=== PATIENT | female | born 1970 | race African-American/Black ===

== ENCOUNTER 2016-07-08 11:05 | Emergency (ER) | payer OTHER ==
[2016-07-08 11:16] VITALS: BP 134/85; PULSE 61; TEMP 97.5; BMI 26.4
[2016-07-08] MEDS ORDERED: IBUPROFEN 400 MG TABLET (FP) PO ONE ×2 (11:53→11:58)
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
== END 2016-07-08 12:08 | disposition home or self-care (01) ==
LOC: JERFT 11:05
DX: S13.4XXA Sprain of ligaments of cervical spine, initial encounter (principal); V43.52XA Car driver injured in collision with other type car in traffic accident, initial encounter; Y92.414 Local residential or business street as the place of occurrence of the external cause; Y93.89 Activity, other specified; Y99.9 Unspecified external cause status
CPT/HCPCS: 99281-25

== ENCOUNTER 2016-07-09 09:00 | Inpatient (IN) | payer OTHER ==
[2016-09-30 13:08] VITALS: BMI 29.9
--- NOTE | 2016-10-07 09:33 | HP ---
[facility] - Chief Complaint Chief Complaint: right hip pain - Past Medical History Allergies/Adverse Reactions: Allergies Allergy/AdvReac Type Severity Reaction Status Date / Time No Known Allergies Allergy Verified 09/30/16 12:58 ...LMP: 09/20/16 - Current Medications Current Medications: Home Medications Medication Instructions Recorded NK [No Known Home Medication] 02/20/14 [facility] Physical Exam - Physical Examination General Appearance: Well Nourished, Well Developed, Alert & Oriented x3 ENT: Clear Lung: Normal air movement Heart: Regular rate & rhythm Extremities: Other (right hip- + ttp ,decr rom, nvi xrays show severe hip djd) Neurological: Intact, Alert, Oriented [facility] Impression/Plan - Impression/Plan Impression: right hip djd Operative Procedure: right aline thr Date to be Performed: 10/08/16
[2016-10-08] MEDS ORDERED: CELECOXIB 200 MG CAPSULE PO ONE (09:48)
[2016-10-08] MEDS ORDERED: TRANEXAMIC ACID 1000 MG/10 ML VIAL IVPUSH ONE (09:48)
[2016-10-08] MEDS ORDERED: CEFAZOLIN 2 GM in DEXTROSE 5%-WATER - 50 ML IVPB ONE (09:48)
[2016-10-08] MEDS ORDERED: GABAPENTIN 300 MG CAPSULE (FP) PO ONE (09:48)
[2016-10-08] MEDS ORDERED: oxyCODONE HCL 10 MG SUSTAINED ACTING TABLET PO ONE (09:48)
[2016-10-08] MEDS ORDERED: MIDAZOLAM HCL 2 MG/2 ML SINGLE DOSE VIAL ONE (10:45)
[2016-10-08] MEDS ORDERED: ROPIVACAINE HCL 0.5% 30ML VIAL ONE (10:45)
[2016-10-08] MEDS ORDERED: MAGNESIUM HYDROX 2400MG/30ML ORAL SUSPENSION 30 ML CUP PO PRN (13:56)
[2016-10-08] MEDS ORDERED: MAG HYDROX/AL HYDROX/SIMETH 30 ML UNIT-DOSE CUP PO PRN (13:56)
--- NOTE | 2016-10-08 13:58 | OP ---
Operative Note - Note: Operative Date: 10/08/16 (tejas) Pre-Operative Diagnosis: right hip djd Operation: right aline thr Post-Operative Diagnosis: Same as Pre-op Surgeon: Theodore Strange Outbound Call Center Representative: Yaron Maynard Anesthesia: Spinal, Local Specimens Removed: femoral head Estimated Blood Loss (mls): 200 Operative Report Dictated: Yes
[2016-10-08] MEDS ORDERED: LACTATED RINGERS SOLUTION 1,000 ML IV SCH (14:00)
[2016-10-08] MEDS ORDERED: ONDANSETRON 4 MG/2 ML VIAL IVPB PRN (14:16)
[2016-10-08] MEDS ORDERED: oxyCODONE HCL 5 MG TABLET PO PRN (14:35)
[2016-10-08] MEDS ORDERED: ACETAMINOPHEN 1000 MG/100 ML VIAL (NON FORMULARY) IVPB ONE (14:35)
[2016-10-08] MEDS ORDERED: ONDANSETRON 4 MG/2 ML VIAL ONE (14:42)
[2016-10-08] MEDS: oxyCODONE HCL 5 MG TABLET PO PRN (20:04)
[2016-10-08] MEDS: CEFAZOLIN 2 GM/D5W 50 ML IVPB SCH (20:04)
[2016-10-08] MEDS: GABAPENTIN 300 MG CAPSULE (FP) PO SCH (21:22)
[2016-10-08] MEDS: SENNOSIDES/DOCUSATE COMBO (SENNA PLUS) TABLET (UD) PO SCH (21:22)
[2016-10-09] MEDS: oxyCODONE HCL 5 MG TABLET PO PRN ×5 (00:53→19:47)
[2016-10-09] MEDS: CEFAZOLIN 2 GM/D5W 50 ML IVPB SCH (03:01)
--- NOTE | 2016-10-09 07:35 | PN ---
Progress Note (short form) - Note Progress Note: Ortho Pt seen and examined s/p right laine thr pod #1 Selected Entries 10/09/16 05:00 Temperature 98.6 F Pulse Rate 64 Respiratory 20 Rate Blood Pressure 122/64 dressing c/d/i, calf soft, nt nvi cbc pending a/p PT dvt ppx pain control d/c home tomorrow if stable
[2016-10-09] MEDS: ASPIRIN 325 MG TABLET PO SCH (08:53)
[2016-10-09] MEDS: MULTIVITAMINS (DAILY MVI) TABLET (FP) PO SCH (09:05)
[2016-10-09] MEDS: GABAPENTIN 300 MG CAPSULE (FP) PO SCH ×2 (09:05→21:39)
[2016-10-09] MEDS: PANTOPRAZOLE 40 MG TABLET (FP) PO SCH (09:05)
[2016-10-09] MEDS: SENNOSIDES/DOCUSATE COMBO (SENNA PLUS) TABLET (UD) PO SCH ×2 (09:05→21:39)
[2016-10-09 09:15] LABS: MCH 31.1 pg (25.7-33.7); MCHC 34.1 g/dl (32.0-36.0); MEAN CELL VOLUME 91.3 fl (80-96); MEAN PLT VOLUME 8.6 fl (7.5-11.1); PLATELET COUNT 267 K/MM3 (134-434); RDW 13.2 % (11.6-15.6); WHITE BLOOD COUNT 10.9 K/mm3 (4.0-10.8)
--- NOTE | 2016-10-09 09:24 | OP ---
DATE OF OPERATION: 10/08/2016 PREOPERATIVE DIAGNOSIS: Degenerative joint disease, right hip. POSTOPERATIVE DIAGNOSIS: Degenerative joint disease, right hip. PROCEDURE: Right total hip replacement with robotic-assisted navigation (MAKOplasty). SURGICAL ATTENDING: Theodore Strange MD SOFTWARE SECURITY CONSULTANT: CRISTIAN Ramirez ANESTHESIA: Regional and spinal. CLOSURE: A press-fit PFL 48-mm cup with an MDM liner and a number 5 Accolade II stem. No. 1 Vicryl for fascia, 0 and 2-0 subcutaneous, 3-0 Monocryl subcuticular and skin glue for skin. ESTIMATED BLOOD LOSS: Less than 100 mL. COMPLICATIONS: None. CONDITION: To recovery room in stable condition. DESCRIPTION OF OPERATIVE PROCEDURE: The patient was taken to the operating room on October 08, 2016. Regional and spinal anesthesia was administered by the anesthesiologist. IV Kefzol and TXA were administered prophylactically prior to the case. The patient was placed in the lateral decubitus position with all prominences well padded. The right hip area was prepped and draped in the usual sterile fashion. First, three small stab incisions were made over the iliac wing. Through this, threaded pins were drilled through the two tables of the crest achieving excellent fixation. To these pins, we attached the navigation array for the navigational procedure. Next, a 12 cm curved longitudinal incision over the posterolateral aspect of the greater trochanter was incised. Hemostasis was achieved with Bovie cautery. Sharp dissection was carried down to the level of the fascia which was opened the entire length of the incision, spreading the fibers of the gluteus aide in line with their direction of origin. A Charnley retractor was placed in this layer and care was taken not to the sciatic nerve. The short external rotators were detached off the insertion of the greater trochanter and peeled off the capsule. A capsulotomy was then performed. A checkpoint was malleted into the greater trochanter. The preoperative limb lengths and offset were then calibrated using the navigation device by putting an array in the checkpoint end on the inferior pole of the patella. The hip was then dislocated. The head was then osteotomized to the appropriate level. Anterior and posterior retractors were placed exposing the acetabulum. Circumferential labrum excision was performed. The acetabulum was registered with the navigation device and multiple spots inside and outside the acetabulum achieving excellent registration and it was confirmed by "popping the bubbles." The robot was then brought into the field and 48-mm hemispherical reaming was performed achieving good rim bleeding bone. Prior to the surgery, we had decided that due to the patient's protrusio acetabulum that we would not try to "bottom out" the reaming, as this would bring us into the pelvis and medialize the center of rotation. It was decided to ream and get a circumferential rim fit. The base was curetted and scraped to produce some bleeding bone, but the medial wall was not reamed. The femoral head was reamed with a small reamer and the back part of the acetabulum component was back-filled with reamings. The real 48-mm PFL cup was then malled into place achieving excellent fixation. Two screws were drilled in order to add adjuvant fixation, as we did not bottom out the cup. This added excellent adjuvant fixation, as well. The MDM liner was then clipped into place. Next, our attention was directed to the femur. The proximal femur was prepared using a box chisel, intramedullary canal finder and serial broaches until a number 5 stem achieved a good fit and fill. The hip was reduced, taken through a range of motion and found to have excellent stability throughout including in extension, external rotation, 90 degrees of flexion with marked adduction, positive hang test and negative telescoping. The cut of the femoral neck was very, very low as only about 8 mm up above the lesser trochanter which was . The limb lengths were found to be slightly longer, about 1 cm from the contralateral side. This was felt to be acceptable due to the patient having protrusio and DJD of the other hip as well. The trial component was removed. The real component was then malleted into place, achieving the same excellent range of motion, stability and limb lengths. The hip was pulse antibiotic irrigated. Vancomycin powder was placed into the hip joint prior to closure. The fascia was closed using number 1 Vicryl, 0 and 2-0 for subcutaneous, and 3-0 Monocryl subcuticular with skin glue for skin, and 4-0 undyed Vicryl for pin sites. A sterile Aquacel dressing was applied. The patient was placed in the supine position. An abduction pillow and bilateral SCDs applied. The patient was awakened from anesthesia and transferred to the recovery room in stable condition. X-rays showed excellent position of the components. Elías MCCLURE/[id number]
--- NOTE | 2016-10-09 12:50 | PN ---
Progress Note (short form) - Note Progress Note: Anesthesia postop note S/P Right total hip replacement, POD#1. Spinal and block. Pat seen and examined. Intact sensory and motor function. Ambulationg. Started PT. VSS No apparent post ansesthesia complications.
[2016-10-09] MEDS ORDERED: oxyCODONE HCL 5 MG TABLET PO PRN (15:55)
[2016-10-10] MEDS: oxyCODONE HCL 5 MG TABLET PO PRN ×3 (02:58→13:38)
[2016-10-10 06:57] VITALS: BP 128/66; PULSE 86; TEMP 98.7
[2016-10-10 08:05] LABS: MCH 31.9 pg (25.7-33.7); MCHC 34.6 g/dl (32.0-36.0); MEAN PLT VOLUME 8.4 fl (7.5-11.1); PLATELET COUNT 264 K/MM3 (134-434); RDW 13.3 % (11.6-15.6); WHITE BLOOD COUNT 12.5 K/mm3 (4.0-10.8)
--- NOTE | 2016-10-10 08:15 | PN ---
Progress Note (short form) - Note Progress Note: Ortho Pt seen and examined s/p right aline thr pod #2 Selected Entries 10/10/16 06:00 Temperature 98.7 F Pulse Rate 86 Respiratory 17 Rate Blood Pressure 128/66 Laboratory Tests 10/10/16 07:30 WBC 12.5 H Hgb 12.0 Hct 34.7 Plt Count 264 dressing c/d/i, calf soft, nt nvi a/p PT hip precautions dvt ppx pain control d/c home today f/u in 1 week
--- NOTE | 2016-10-10 08:16 | DS ---
Physical Examination Vital Signs: Vital Signs Temperature 98.7 F 10/10/16 06:00 Pulse Rate 86 10/10/16 06:00 Respiratory Rate 17 10/10/16 06:00 Blood Pressure 128/66 10/10/16 06:00 O2 Sat by Pulse Oximetry (%) 98 10/10/16 02:00 Labs: CBC, BMP 10/10/16 07:30 Discharge Summary Reason For Visit: OSTEOARTHRITIS Procedures: Principal: s/p right aline thr Hospital Course: admitted for elective right aline thr, uneventful post-op, stable for d/c Condition: Good - Instructions Diet, Activity, Other Instructions: Post-op Instructions-Total Hip Replacement Call the office for a follow-up appointment in 1 week - [phone] Aspirin 325mg daily for 6 weeks. Pain medication was sent into your pharmacy. Apply Graduated Compression Stockings (TEDs) to both lower extremities- remove daily for hygiene ONLY Apply Sequential Compression Device (SCDs) to both Lower extremities remove for PT and hygiene ONLY Apply cold packs to affected area for 15 minutes every 2 hours. Physical Therapist will come to your home for the first 5 days. You will be set up with outpatient PT at your first post-operative visit. Patient may ambulate as tolerated-encourage self care (at least every 2-3 hours while awake) with walker or cane Maintain Aquacel (waterproof) dressing to operative wound (will be removed by surgeon at first office visit) Shower with Aquacel dressing in place-if Aquacel integrity compromised, remove and apply dry sterile dressing and notify Orthopedist. DO NOT SHOWER unless Orthopedists approves without Aquacel dressing CONTACT THE OFFICE FOR ANY CHANGE IN YOUR CONDITION (for example-fever greater than 102 degrees,excessive bleeding from operative site, purulent drainage, severe swelling or pain) GO TO THE EMERGENCY ROOM IF THERE IS A MEDICAL EMERGENCY Hip Precautions: * Keep a rolled towel under affected heel while in bed or chair (to keep knee in extension) * Dependent upon approach: * Posterior - do not cross legs; do not sit on low chairs or toilets. * If you have any questions, please do not hesitate to call the office - . Referrals: Theodore Strange MD [Staff Physician] - Disposition: VNS/HOME HEALTH CARE - Home Medications Comprehensive Discharge Medication List: Ambulatory Orders Oxycodone HCl/Acetaminophen [Percocet 5-325 mg Tablet -] 1 - 2 tab PO Q6H #50 tab MDD 8 10/08/16
[2016-10-10] MEDS: MULTIVITAMINS (DAILY MVI) TABLET (FP) PO SCH (08:59)
[2016-10-10] MEDS: SENNOSIDES/DOCUSATE COMBO (SENNA PLUS) TABLET (UD) PO SCH (08:59)
[2016-10-10] MEDS: PANTOPRAZOLE 40 MG TABLET (FP) PO SCH (08:59)
[2016-10-10] MEDS: ASPIRIN 325 MG TABLET PO SCH (09:00)
[2016-10-10] MEDS: GABAPENTIN 300 MG CAPSULE (FP) PO SCH (09:01)
--- NOTE | 2016-10-10 16:26 | PATH ---
Surgical Pathology Report Patient Name: ROLAN ESTRADA Med. Rec. #: [id number] /Age/Gender: 1970 (Age: 46) / F Account: [id number] [facility] Taken: 10/08/2016 Received: 10/08/2016 Reported: 10/10/2016 Physicians: Theodore Strange M.D. Specimen(s) Received RIGHT FEMORAL HEAD Clinical History Right hip osteoarthritis Final Diagnosis BONE, RIGHT FEMORAL HEAD, REPLACEMENT: DEGENERATIVE JOINT DISEASE. Electronically Signed Misbah Castanon M.D. Gross Description Received in formalin, labeled "right femoral head," is a 4.3 x 4.3 x 3.4 cm. femoral head with no femoral neck attached. The margin of resection is smooth. No areas of eburnation are identified. The articular surface is mayer-yellow and focally granular. The underlying trabecular bone is yellow and hard. Also received within the same container is a 3.8 x 3.6 x 1.5 cm irregular portion of bone, consistent with a portion of femoral neck. A sales representative raw fibers section is submitted in one cassette, following decalcification. 10/09/201610/09/2016
== END 2016-10-10 14:10 | disposition home health service (06) | DRG 470 ==
LOC: UNDOADMIN 10-08 09:35 → FM/S 10-08 09:35
PROVIDERS: ADMIT Orthopaedic Surgery; ATTEND Orthopaedic Surgery
PROC: 8E0Y0CZ Robotic Assisted Procedure of Lower Extremity, Open Approach (ICD-10-PCS; 2016-10-08)
PROC: 0SR90JA Replacement of Right Hip Joint with Synthetic Substitute, Uncemented, Open Approach (ICD-10-PCS; principal; 2016-10-08 12:35)
DX: M16.11 Unilateral primary osteoarthritis, right hip (principal)
CPT/HCPCS: 36415; 73502-TC-RT; 84703; 85027; 88304-TC; 88311-TC; 94010; 94760; 97116-GP; 97162-GP

== ENCOUNTER 2018-01-27 05:02 | Day surgery (SDC) | payer OTHER ==
[2018-01-23 12:36] VITALS: BMI 28.7
[2018-01-27] MEDS ORDERED: PROPOFOL 20 ML ONE (11:37)
[2018-01-27] MEDS ORDERED: MIDAZOLAM HCL 2 MG/2 ML SINGLE DOSE VIAL ONE (11:38)
--- NOTE | 2018-01-27 12:17 | HP ---
History & Physical Update - Physical Physical: No Change - Assessment Assessment: No Change - Plan Plan: No Change
[2018-01-27] MEDS ORDERED: DEXAMETHASONE SOD PHOSPHATE 4 MG/1 ML VIAL ONE (12:46)
[2018-01-27] MEDS ORDERED: KETOROLAC TROMETHAMINE 30 MG/1 ML VIAL ONE (12:48)
[2018-01-27] MEDS ORDERED: ONDANSETRON 4 MG/2 ML VIAL IVPUSH PRN (13:12)
[2018-01-27] MEDS ORDERED: IBUPROFEN 800 MG/8 ML IJ IVPB PRN (13:12)
[2018-01-27] MEDS ORDERED: IBUPROFEN 600 MG TABLET (FP) PO PRN (13:12)
[2018-01-27] MEDS ORDERED: oxyCODONE HCL 5 MG TABLET PO PRN (13:12)
[2018-01-27] MEDS ORDERED: ELECTROLYTE-148 SOLN 1,000 ML IV SCH (13:15)
[2018-01-27] MEDS ORDERED: LACTATED RINGERS SOLUTION 1,000 ML IV SCH (13:15)
[2018-01-27] MEDS ORDERED: oxyCODONE HCL 5 MG TABLET ONE (14:02)
[2018-01-27] MEDS ORDERED: ONDANSETRON 4 MG/2 ML VIAL ONE (14:02)
--- NOTE | 2018-01-27 14:37 | OP ---
DATE OF OPERATION: 01/27/2018 PREOPERATIVE DIAGNOSES: Menometrorrhagia, fibroid uterus. POSTOPERATIVE DIAGNOSES: Menometrorrhagia, fibroid uterus, endometrial polyp. SURGEON: Jono Fairchild MD ANESTHESIA: General. ANESTHESIOLOGIST: Orin Ferraro MD ESTIMATED BLOOD LOSS: 50 mL DESCRIPTION OF OPERATIVE PROCEDURE: Patient was taken to the operating room, had adequate general anesthesia. In dorsal lithotomy position, examination under anesthesia revealed external genitalia to be normal. Vagina was normal. Cervix was clean. No gross lesions. The uterus was irregular, enlarged, approximately 12-week size. Adnexa: No masses were palpable. Uterus was irregular and consistent with multiple myomas. Then, anterior lip of the cervix was grasped with a single-tooth tenaculum. Cervix was slightly dilated and sounded to 9 cm. Then, Symphion hysteroscope/resectoscope was introduced, and visualization of the endocervical canal was normal. There were several polyps at the fundal area of the uterus, which were floating polyps. Both ostia were visualized. No submucous myoma was seen. Then, endometrial polyp was removed. Then, the resectoscope was withdrawn, and the endometrium was curetted. Patient tolerated the procedure well, left the OR in good condition. JONO FAIRCHILD M.D. [id number]
--- NOTE | 2018-01-27 17:02 | EKG ---
Test Reason : Blood Pressure : / mmHG Vent. Rate : 056 BPM Atrial Rate : 056 BPM P-R Int : 166 ms QRS Dur : 098 ms QT Int : 470 ms P-R-T Axes : 064 051 055 degrees QTc Int : 453 ms SINUS BRADYCARDIA OTHERWISE NORMAL ECG WHEN COMPARED WITH ECG OF 24-JAN-2018 12:07, NO SIGNIFICANT CHANGE WAS FOUND Confirmed by MD LANI, PADMINI ([id number]) on 01/27/2018 5:01:37 PM Referred By: Ulises AYOUB Confirmed By:PADMINI GARIBAY MD
[2018-01-27 17:37] VITALS: BP 120/60; PULSE 60
[2018-01-27 18:03] VITALS: TEMP 97.8
--- NOTE | 2018-01-28 16:27 | PATH ---
Surgical Pathology Report Patient Name: ROLAN ESTRADA [facility]. Rec. #: [id number] /Age/Gender: 1970 (Age: 47) / F Account: [id number] Location: [facility] SURGICAL Taken: 01/27/2018 Received: 01/27/2018 Reported: 01/28/2018 Physicians: Jono Fairchild M.D. Specimen(s) Received ENDOMETRIAL CURETTINGS AND POLYP Clinical History Fibroids Final Diagnosis ENDOMETRIAL CURETTINGS AND POLYP, DILATION AND CURETTAGE: FEW FRAGMENTS OF ENDOMETRIAL TISSUE WITH DISTORTED GLANDULAR ARCHITECTURE AND THICKENED VESSELS IN THE STROMA, SUGGESTIVE OF ENDOMETRIAL POLYP. SMOOTH MUSCLE BUNDLES, CONSISTENT WITH SUBMUCOSAL LEIOMYOMA IN A PROPER CLINICAL SETTING. SEPARATE PROLIFERATIVE ENDOMETRIUM. FRAGMENTS OF ENDOCERVICAL TISSUE WITH SQUAMOUS METAPLASIA. Electronically Signed Priscila Wu M.D. Gross Description Received in formalin labeled "endometrial curettings," is a 1.8 x 1.4 x 0.3 cm aggregate of mayer red soft tissue fragments. The formalin is filtered and the specimen is entirely submitted in one cassette. /01/27/2018 saudi/01/27/2018
== END 2018-01-27 18:03 | disposition home or self-care (01) ==
LOC: JASU-SURG 05:02
PROVIDERS: ATTEND Obstetrics & Gynecology
PROC: 0UB98ZX Excision of Uterus, Via Natural or Artificial Opening Endoscopic, Diagnostic (ICD-10-PCS; principal; 2018-01-27 11:00)
PROC: 0UDB7ZX Extraction of Endometrium, Via Natural or Artificial Opening, Diagnostic (ICD-10-PCS; 2018-01-27 11:00)
DX: N92.1 Excessive and frequent menstruation with irregular cycle (principal); N84.0 Polyp of corpus uteri
CPT/HCPCS: 84703; 88305-TC; 93005; 93010; 94760

== ENCOUNTER 2018-05-17 16:40 | Emergency (ER) | payer OTHER ==
[2018-05-17 16:44] VITALS: BMI 29.4
--- NOTE | 2018-05-17 17:25 | PDOC ---
History of Present Illness - General Chief Complaint: Hemoptysis Stated Complaint: BLEEDING Time Seen by Provider: 05/17/18 17:25 History Source: Patient Exam Limitations: No Limitations - History of Present Illness Initial Comments: 05/17/18 17:27 This is a 47yo F with PMH of hypothyroidism s/p partial thyroidectomy 1996, diverticulitis s/p partial colectomy 2012, and uterine fibroids, who presents due to hematemesis. She felt well until this morning when she woke up with chills, malaise and sore throat. She was gargling her throat with salt water when she experience 2 episodes of hematemesis in a row. she was not nauseous prior to vomiting. She gets monthly migraines that feel like "pressure" because shes on medication, sometimes associated with vomiting (no prior episodes of hematemesis) but denies having a migraine prior to this episode. She denies cough, abd pain, d/c, melena, hematochezia, a/c use, NSAID use, fever, sick contacts, EtOH use. She returned back from [place] trip 1 w ago. 05/17/18 17:29 05/17/18 17:48 05/17/18 18:09 05/17/18 Past History - Past Medical History Allergies/Adverse Reactions: Allergies Allergy/AdvReac Type Severity Reaction Status Date / Time No Known Allergies Allergy Verified 05/17/18 16:44 Home Medications: Ambulatory Orders Oxycodone HCl/Acetaminophen [Percocet 5-325 mg Tablet -] 1 - 2 tab PO Q6H #50 tab MDD 8 10/08/16 Ibuprofen [Motrin -] 600 mg PO TID #21 tablet 01/27/18 Anemia: No Asthma: No Cancer: No Cardiac Disorders: No CVA: No COPD: No CHF: No Dementia: No Diabetes: No GI Disorders: Yes (DIVERTICULOSIS & ITIS) Disorders: Yes (FIBROIDS) HTN: No Hypercholesterolemia: No Liver Disease: No Seizures: No Thyroid Disease: Yes - Surgical History Abdominal Surgery: Yes (colon sx for diverticulitis) Appendectomy: No Cardiac Surgery: No Cholecystectomy: No Lung Surgery: No Neurologic Surgery: No Orthopedic Surgery: Yes (rt. hip replacement) - Immunization History Td Vaccination: (unknown) Immunization Up to Date: (unknown) - Suicide/Smoking/Psychosocial Hx Smoking Status: No Smoking History: Never smoked Years of Tobacco Use: 0 Have you smoked in the past 12 months: No Number of Cigarettes Smoked Daily: 0 If you are a former smoker, when did you quit?: 05/15/12 Cigars Per Day: 0 'Breaking Loose' booklet given: 05/16/12 Hx Alcohol Use: No Drug/Substance Use Hx: Yes Substance Use Type: Marijuana Hx Substance Use Treatment: No Review of Systems - Review of Systems Able to Perform ROS?: Yes Is the patient limited Martiniquais proficient: No Constitutional: Yes: Chills. No: Fever HEENTM: Yes: Throat Pain. No: Nose Congestion Respiratory: No: Cough, Shortness of Breath, Wheezing Cardiac (ROS): No: Chest Pain, Lightheadedness, Palpitations, Chest Tightness ABD/GI: Yes: Vomiting. No: Abdominal Distended, Blood Streaked Bowels, Constipated, Diarrhea, Nausea, Abdominal cramping : No: Dysuria Musculoskeletal: No: Back Pain Integumentary: No: Bruising Neurological: Yes: Headache (monthy migraines ). No: Numbness, Paresthesia Psychiatric: No: Anxiety Hematologic/Lymphatic: No: Anemia, Blood Clots, Easy Bleeding *Physical Exam - Vital Signs Last Vital Signs Temp Pulse Resp BP Pulse Ox 98.6 F 74 18 107/77 99 05/17/18 16:42 05/17/18 16:42 05/17/18 16:42 05/17/18 16:42 05/17/18 16:42 - Physical Exam General Appearance: Yes: Nourished, Appropriately Dressed, Mild Distress HEENT: positive: EOMI, Normal Voice, Tonsillar Erythema. negative: Scleral Icterus (R), Scleral Icterus (L), Tonsillar Exudate, Nasal Congestion, Rhinorrhea, Sinus Tenderness Neck: positive: Trachea midline, Normal Thyroid, Supple. negative: Tender Respiratory/Chest: positive: Lungs Clear, Normal Breath Sounds Cardiovascular: positive: Regular Rhythm, Regular Rate, S1, S2. negative: Edema Gastrointestinal/Abdominal: positive: Tender, Flat, Soft, Decreased BS, Tenderness (mild epigastric ). 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 NML intact (grossly ), Fully Oriented, Alert, Normal Mood/Affect Moderate Sedation - Procedure Monitoring Vital Signs: Procedure Monitoring Vital Signs Temperature 98.6 F 05/17/18 16:42 Pulse Rate 74 05/17/18 16:42 Respiratory Rate 18 05/17/18 16:42 Blood Pressure 107/77 05/17/18 16:42 O2 Sat by Pulse Oximetry (%) 99 05/17/18 16:42 ED Treatment Course - LABORATORY CBC & Chemistry Diagram: 05/17/18 18:06 05/17/18 18:00 - ADDITIONAL ORDERS Additional order review: 05/17/18 20:14 05/17/18 20:15 Clinical picture most consistent with mild URI and a capillary tear in throat that resulted in hematemesis during gargling patient given mylanta and pepcid labs and x ray unremarkable *DC/Admit/Observation/Transfer Diagnosis at time of Disposition: Hematemesis without nausea URI (upper respiratory infection) Qualifiers: URI type: unspecified viral URI Qualified Code(s): J06.9 - Acute upper respiratory infection, unspecified - Discharge Dispostion Disposition: HOME Condition at time of disposition: Good Decision to Admit order: No - Referrals Referrals: Abad Kelley DO [Staff Physician] - - Patient Instructions Printed Discharge Instructions: Common Cold, DI for Viral Upper Respiratory Infection -- Adult Additional Instructions: Your bloody vomit episode was most likely caused by a small capillary tear in an already irritate throat please follow up with a neurologist for yoru frequent migraines we referred you to Dr Kelley. - Post Discharge Activity
--- NOTE | 2018-05-17 17:51 | PDOC ---
Attending Attestation - HPI HPI: 05/17/18 17:56 This is a 47 year old female with a significant past medical history of hypothyroidism s/p partial thyroidectomy 1996, diverticulitis s/p partial colectomy 2012, and uterine fibroids, who presents to the ED with generalized malaise since this morning. Patient reports malaise, chills, generalized weakness, and sore throat. Patient states she gargled salt water to alleviate her throat pain this morning when she had 2 episodes of hematemesis in a row. Denies taking medication for present symptoms. Patient states she gets monthly headaches for the past several months. Denies nausea. Denies fever or chills. Denies any other symptoms. - Physicial Exam PE: 05/17/18 18:15 GENERAL: Well developed, well nourished. Awake and alert. No acute distress. HEENT: + Tonsillar Erythema Normocephalic, atraumatic. PERRLA, EOMI. No conjunctival pallor. Sclera are non- icteric. Moist mucous membranes. NECK: Supple. Full ROM. No JVD. Carotid pulses 2+ and symmetric, without bruits. No thyromegaly. No lymphadenopathy. CARDIOVASCULAR: Regular rate and rhythm. No murmurs, rubs, or gallops. Distal pulses are 2+ and symmetric. PULMONARY: No evidence of respiratory distress. Lungs clear to auscultation bilaterally. No wheezing, rales or rhonchi. ABDOMINAL: Soft. Non-tender. Non-distended. No rebound or guarding. No organomegaly. Normoactive bowel sounds. MUSCULOSKELETAL Normal range of motion at all joints. No bony deformities or tenderness. No CVA tenderness. EXTREMITIES: No cyanosis. No clubbing. No edema. No calf tenderness. SKIN: Warm and dry. Normal capillary refill. No rashes. No jaundice. NEUROLOGICAL: Alert, awake, appropriate. Cranial nerves 2-12 intact. No deficits to light touch and temperature in face, upper extremities and lower extremities. No motor deficits in the in face, upper extremities and lower extremities. Normoreflexic in the upper and lower extremities. Normal speech. Toes are down- going bilaterally. Gait is normal without ataxia. PSYCHIATRIC: Cooperative. Good eye contact. Appropriate mood and affect. <Devora Lay - Last Filed: 05/17/18 18:15> - Resident Resident Name: Evelina Franz - ED Attending Attestation I have performed the following: I have examined & evaluated the patient, The case was reviewed & discussed with the resident, I agree w/resident's findings & plan, Exceptions are as noted - HPI HPI: 05/17/18 17:47 47 yo female was gargling with salt water for her sore throat . She also had chills today. She came from [place] one week ago After she gargled with salt water several times she noted some blood in her saliva - Medical Decision Making 05/17/18 20:09 all her lab work was unremarkable cbc wnl comp wnl neg preg test NEGATIVE influenza 05/17/18 20:25 imp: viral syndrome ,URI d/c home <Marly Singh - Last Filed: 05/17/18 20:26> Attestations - Attestations 05/17/18 18:16 Documentation prepared by Devora Lay, acting as medical i d sales for Marly Singh MD <Devora Lay - Last Filed: 05/17/18 18:15>
[2018-05-17] MEDS ORDERED: MAG HYDROX/AL HYDROX/SIMETH 30 ML UNIT-DOSE CUP PO ONE (18:15)
[2018-05-17] MEDS ORDERED: FAMOTIDINE 20 MG/50 ML IVPB 20 MG/50 ML MG IVPB ONE ×2 (18:16→18:36)
[2018-05-17 18:19] LABS: BASO % 0.3 % (0-2.0); EOS % 0.5 % (0-4.5); HEMATOCRIT 40.8 % (32.4-45.2); HEMOGLOBIN 14.3 GM/dL (10.7-15.3); LYMPH % 22.1 % (8-40); MCHC 35.1 g/dl (32.0-36.0); MEAN CELL VOLUME 93.9 fl (80-96); MEAN PLT VOLUME 7.5 fl (7.5-11.1); MONO % 3.8 % (3.8-10.2); NEUT % 73.3 % (42.8-82.8); PLATELET COUNT 351 K/MM3 (134-434); RBC 4.34 M/mm3 (3.60-5.2); RDW 14.1 % (11.6-15.6); WHITE BLOOD COUNT 7.6 K/mm3 (4.0-10.0)
[2018-05-17 18:32] LABS: INR 1.03 (0.83-1.09); PROTHROMBIN TIME (PATIENT) 12.1 SEC (9.7-13.0)
[2018-05-17] MEDS ORDERED: MAG HYDROX/AL HYDROX/SIMETH 30 ML UNIT-DOSE CUP ONE (18:36)
[2018-05-17 18:48] LABS: ALBUMIN 3.9 g/dl (3.4-5.0); ALK PHOS 70 U/L (45-117); ANION GAP 8 MMOL/L (8-16); BILIRUBIN,TOTAL 0.2 mg/dL (0.2-1); BLOOD UREA NITROGEN 9 mg/dL (7-18); CALCIUM 9.4 mg/dL (8.5-10.1); CHLORIDE 105 mmol/L (98-107); CO2 28 mmol/L (21-32); CREATININE 0.8 mg/dL (0.55-1.3); GLUCOSE,RANDOM 97 mg/dL (74-106); SGOT/AST 6 U/L (15-37); SGPT/ALT 24 U/L (13-61); SODIUM 141 mmol/L (136-145); TOT PROT 7.2 g/dl (6.4-8.2)
[2018-05-17 20:25] VITALS: BP 112/65; PULSE 62; TEMP 98.1
== END 2018-05-17 20:28 | disposition home or self-care (01) ==
LOC: JER 16:40
PROC: 3E033GC Introduction of Other Therapeutic Substance into Peripheral Vein, Percutaneous Approach (ICD-10-PCS; principal; 2018-05-17)
DX: K92.0 Hematemesis (principal); J06.9 Acute upper respiratory infection, unspecified; E89.0 Postprocedural hypothyroidism; Z87.19 Personal history of other diseases of the digestive system; Z87.42 Personal history of other diseases of the female genital tract; Z90.49 Acquired absence of other specified parts of digestive tract
CPT/HCPCS: 36415; 71045-TC-FY; 80053; 84703; 85025; 85610; 85730; 87804; 99283-25

== ENCOUNTER 2021-08-01 00:01 | Emergency (ER) | payer OTHER ==
[2021-08-01 01:05] VITALS: TEMP 98.1; BMI 37.2
[2021-08-01] MEDS ORDERED: oxyCODONE HCL 5 MG TABLET PO ONE (03:00)
[2021-08-01] MEDS ORDERED: oxyCODONE HCL 5 MG TABLET ONE (03:18)
[2021-08-01 06:49] VITALS: BP 133/88; PULSE 70
== END 2021-08-01 06:49 | disposition home or self-care (01) ==
LOC: JER 00:01
DX: M25.551 Pain in right hip (principal); M25.511 Pain in right shoulder
CPT/HCPCS: 36415; 72170-TC-FY; 73502-TC-RT-FY; 73552-TC-RT-FY; 84703; 99284-25

== ENCOUNTER 2023-06-08 15:31 | Emergency (ER) | payer OTHER ==
[2023-06-08 15:37] VITALS: BMI 36.5
[2023-06-08] MEDS ORDERED: ACETAMINOPHEN INJECTION 100 ML IVPB ONE (16:26)
[2023-06-08] MEDS: ACETAMINOPHEN 1000 MG/100 ML BAG IVPB ONE (16:48)
[2023-06-08 16:52] LABS: BASO % 0.7 % (0-2.0); EOS % 1.2 % (0-4.5); HEMATOCRIT 37.4 % (32.4-45.2); HEMOGLOBIN 12.9 GM/dL (10.7-15.3); LYMPH % 23.5 % (8-40); MCH 30.9 pg (25.7-33.7); MCHC 34.4 g/dl (32.0-36.0); MEAN CELL VOLUME 89.7 fl (80-96); MEAN PLT VOLUME 7.7 fl (7.5-11.1); MONO % 5.2 % (3.8-10.2); NEUT % 69.4 % (42.8-82.8); PLATELET COUNT 258 10^3/uL (134-434); RBC 4.17 M/mm3 (3.60-5.2); RDW 14.5 % (11.6-15.6); WHITE BLOOD COUNT 8.1 K/mm3 (4.0-10.0)
[2023-06-08 17:05] LABS: INR 1.03 (0.83-1.09); PROTHROMBIN TIME (PATIENT) 11.9 SEC (9.7-13.0)
[2023-06-08 17:07] LABS: ACTIVATED PTT 30.6 SECONDS (25.2-36.5)
[2023-06-08 17:08] LABS: POTASSIUM 4.2 mmol/L (3.5-5.1)
[2023-06-08 17:10] LABS: CALCIUM 9.1 mg/dL (8.5-10.1)
[2023-06-08 17:11] LABS: ALBUMIN 3.5 g/dl (3.4-5.0); BLOOD UREA NITROGEN 13.9 mg/dL (7-18); MAGNESIUM 2.3 mg/dL (1.8-2.4)
[2023-06-08 17:14] LABS: CREATININE 0.9 mg/dL (0.55-1.3)
[2023-06-08 17:15] LABS: BILIRUBIN,TOTAL 0.2 mg/dL (0.2-1); TOT PROT 6.9 g/dl (6.4-8.2)
[2023-06-08 19:20] VITALS: BP 121/78; PULSE 77; RESP 20; TEMP 98.6
== END 2023-06-08 20:07 | disposition home or self-care (01) ==
LOC: JER 15:31
PROC: 3E033NZ Introduction of Analgesics, Hypnotics, Sedatives into Peripheral Vein, Percutaneous Approach (ICD-10-PCS; principal; 2023-06-08)
DX: K58.9 Irritable bowel syndrome, unspecified (principal); R07.9 Chest pain, unspecified; R07.0 Pain in throat; R05.9 Cough, unspecified; R06.02 Shortness of breath; M79.10 Myalgia, unspecified site; R19.7 Diarrhea, unspecified; Z20.822 Contact with and (suspected) exposure to COVID-19
CPT/HCPCS: 0241U-QW; 36415; 71046-TC-FY; 80053; 83735; 84484; 85025; 85610; 85730; 93005; 93010; 99285-25; J0131